=== PATIENT | male | born 1950 | race Caucasian/White ===

== ENCOUNTER → 2017-12-04 | Outpatient (CLI) | payer BC ==
[2015-03-26 12:10] VITALS: BP 109/56
[~2017-12-04] MED LIST: BETAPACE 120MG120 MG PO; GAS RELIEF20 MG/0.3 PO; VICKS PO; XARELTO20 MG PO
== END ==
LOC: RAD 10:19
DX: J43.9 Emphysema, unspecified (principal); R91.8 Other nonspecific abnormal finding of lung field

== ENCOUNTER 2018-05-04 18:09 | Emergency (ER) | payer BC, MEDICARE ==
[~2018-05-04] VITALS: Ht 175.3 cm; Wt 81.8 kg
[2018-05-04] MEDS ORDERED: GLUCOPHAGE500 MG/TAB PO (18:17)
[2018-05-04] MEDS ORDERED: METFORMIN HCL500 M2 PO (18:39)
[2018-05-04] MEDS ORDERED: FARXIGA5 MG PO (18:40)
[2018-05-04] MEDS ORDERED: SIMVASTATIN20 M1 PO (18:45)
[2018-05-04] MEDS ORDERED: VASOTEC 2.2.5 MG/TAB PO (18:47)
[2018-05-04] MEDS ORDERED: AMIODARONE200 MG PO (18:48)
[2018-05-04] MEDS ORDERED: ADULT ASPIRIN81 MG PO (18:50)
[2018-05-04 18:53] LABS: EOS # 0.4 (0.04-0.40); EOS % 3.7 % (0.0-4.0); HEMOGLOBIN 16.9 g/dL (13.5-18.0); LYMPH# 2.1 (1.50-4.00); MEAN CELL VOLUME 82 fl (78-100); MEAN CORPUSCULAR HEMOGLOBIN 27 pg (27-31); MEAN CORPUSCULAR HGB CONC 33 g/dL (33-37); MEAN PLATELET VOLUME 9.6 fl (7.4-10.4); MONO # 1.4 (0.20-0.80); NEU # 7.8 (1.40-6.50); PLATELET COUNT 302 K/mm3 (130-400); RED BLOOD COUNT 6.23 M/mm3 (4.20-5.60); RED CELL DISTRIBUTION WIDTH 14.9 % (11.5-14.5); WHITE BLOOD COUNT 11.9 K/mm3 (4.8-10.8)
[2018-05-04] MEDS ORDERED: COMBIVENT RESPI1 SPR IH (18:54)
[2018-05-04 19:05] LABS: ALBUMIN 3.9 g/dL (3.5-5.0); BUN/CREATININE RATIO 10.1 (6.0-26.0); CALCIUM 9.5 mg/dL (8.4-10.2); POTASSIUM 3.9 mmol/L (3.6-5.0); TOTAL BILIRUBIN 0.3 mg/dL (0.2-1.3); TOTAL PROTEIN 7.9 g/dL (6.3-8.2)
[2018-05-04] MEDS ORDERED: CETIRIZINE HCL10 MG PO (19:37)
[2018-05-04 20:26] LABS: PROTHROMBIN TIME 9.6 SECONDS (9.0-12.0)
[2018-05-04 20:59] VITALS: BP 148/93
== END 2018-05-04 20:59 | disposition short-term general hospital (02) ==
LOC: ED 18:09
PROVIDERS: Family Medicine
DX: I20.0 Unstable angina (principal); I42.9 Cardiomyopathy, unspecified; I48.91 Unspecified atrial fibrillation; E11.9 Type 2 diabetes mellitus without complications; E78.5 Hyperlipidemia, unspecified; J44.9 Chronic obstructive pulmonary disease, unspecified; F17.200 Nicotine dependence, unspecified, uncomplicated; Z79.84 Long term (current) use of oral hypoglycemic drugs; Z79.899 Other long term (current) drug therapy
CPT/HCPCS: J1644; J2270

== ENCOUNTER 2018-05-10 15:29 | Outpatient (RCR) | payer BC ==
[~2018-05-10 15:29] MED LIST changes: +ADULT ASPIRIN81 MG PO; +AMIODARONE200 MG PO; +CETIRIZINE HCL10 MG PO; +COMBIVENT RESPI1 SPR IH; +FARXIGA5 MG PO; +GLUCOPHAGE500 MG/TAB PO; +METFORMIN HCL500 M2 PO; +SIMVASTATIN20 M1 PO; +VASOTEC 2.2.5 MG/TAB PO
[2018-06-07] MEDS ORDERED: BRILINTA90 MG PO (09:38)
[2018-06-07] MEDS ORDERED: GLUCOTROL 5M5 MG/TAB PO (09:39)
[2018-06-07] MEDS ORDERED: NITROGLYCERIN0.4 M1 SL (09:39)
[2018-06-07] MEDS ORDERED: ASPIRIN ADULT L81 M3 PO (09:39)
[2018-06-07] MEDS ORDERED: FLOMAX0.4 MG PO (09:39)
[2018-06-07] MEDS ORDERED: FUROSEMIDE20 MG PO (09:39)
== END 2018-08-08 | disposition home or self-care (01) ==
LOC: CARDREHAB
DX: Z48.812 Encounter for surgical aftercare following surgery on the circulatory system (principal); Z95.5 Presence of coronary angioplasty implant and graft; I21.4 Non-ST elevation (NSTEMI) myocardial infarction

== ENCOUNTER 2018-06-07 09:05 | Emergency (ER) | payer BC ==
[~2018-06-07] VITALS: Wt 87.0 kg
[2018-06-07] MEDS ORDERED: BRILINTA90 MG PO (09:38)
[2018-06-07] MEDS ORDERED: FLOMAX0.4 MG PO (09:39)
[2018-06-07] MEDS ORDERED: GLUCOTROL 5M5 MG/TAB PO (09:39)
[2018-06-07] MEDS ORDERED: FUROSEMIDE20 MG PO (09:39)
[2018-06-07] MEDS ORDERED: NITROGLYCERIN0.4 M1 SL (09:39)
[2018-06-07] MEDS ORDERED: ASPIRIN ADULT L81 M3 PO (09:39)
[2018-06-07 10:07] LABS: EOS # 0.5 (0.04-0.40); EOS % 3.8 % (0.0-4.0); HEMATOCRIT 47.2 % (42.0-52.0); HEMOGLOBIN 15.3 g/dL (13.5-18.0); LYMPH# 1.6 (1.50-4.00); MEAN CELL VOLUME 82 fl (78-100); MEAN CORPUSCULAR HEMOGLOBIN 27 pg (27-31); MEAN CORPUSCULAR HGB CONC 32 g/dL (33-37); MEAN PLATELET VOLUME 9.3 fl (7.4-10.4); MONO # 1.2 (0.20-0.80); NEU # 8.6 (1.40-6.50); PLATELET COUNT 252 K/mm3 (130-400); RED BLOOD COUNT 5.73 M/mm3 (4.20-5.60); RED CELL DISTRIBUTION WIDTH 17.6 % (11.5-14.5); WHITE BLOOD COUNT 11.9 K/mm3 (4.8-10.8)
[2018-06-07 10:11] LABS: ALBUMIN 3.6 g/dL (3.5-5.0); BUN/CREATININE RATIO 9.7 (6.0-26.0); CALCIUM 8.5 mg/dL (8.4-10.2); POTASSIUM 4.4 mmol/L (3.6-5.0); TOTAL BILIRUBIN 0.4 mg/dL (0.2-1.3)
[2018-06-07 10:15] LABS: PARTIAL THROMBOPLASTIN TIME 24.4 SECONDS (21.0-32.0)
[2018-06-07 10:21] LABS: CKMB ISOENZYME 1.6 ng/mL (0.6-3.5)
[2018-06-07 10:22] LABS: TROPONIN-I < 0.03 ng/mL (0.00-0.06)
[2018-06-07 10:42] LABS: D-DIMER 0.29 mg/L FEU (0.15-0.50)
[2018-06-07 13:41] VITALS: BP 133/87
== END 2018-06-07 13:35 | disposition home or self-care (01) ==
LOC: ED 09:05
PROVIDERS: Physician Assistant
DX: R07.9 Chest pain, unspecified (principal); I25.10 Atherosclerotic heart disease of native coronary artery without angina pectoris; E11.9 Type 2 diabetes mellitus without complications; E78.5 Hyperlipidemia, unspecified; J44.9 Chronic obstructive pulmonary disease, unspecified; I42.9 Cardiomyopathy, unspecified; F17.210 Nicotine dependence, cigarettes, uncomplicated; Z95.5 Presence of coronary angioplasty implant and graft; F41.9 Anxiety disorder, unspecified; I48.91 Unspecified atrial fibrillation; Z79.84 Long term (current) use of oral hypoglycemic drugs; Z79.899 Other long term (current) drug therapy; Z79.82 Long term (current) use of aspirin

== ENCOUNTER → 2018-06-14 | Outpatient (CLI) | payer BC ==
[2018-06-07 13:41] VITALS: BP 133/87
[~2018-06-14] MED LIST changes: +ASPIRIN ADULT L81 M3 PO; +BRILINTA90 MG PO; +FLOMAX0.4 MG PO; +FUROSEMIDE20 MG PO; +GLUCOTROL 5M5 MG/TAB PO; +NITROGLYCERIN0.4 M1 SL
== END ==
LOC: CARDREHAB 08:33 → CARDLAB 16:17
DX: I25.10 Atherosclerotic heart disease of native coronary artery without angina pectoris (principal); Z82.49 Family history of ischemic heart disease and other diseases of the circulatory system; F17.210 Nicotine dependence, cigarettes, uncomplicated
CPT/HCPCS: A9500

== ENCOUNTER → 2018-06-24 | Outpatient (CLI) | payer BC ==
[2018-06-07 13:41] VITALS: BP 133/87
== END ==
LOC: VAS 15:42 → RAD 17:00
DX: I35.1 Nonrheumatic aortic (valve) insufficiency (principal)

== ENCOUNTER 2019-05-27 11:59 | Emergency (ER) | payer BC ==
[~2019-05-27] VITALS: Ht 177.8 cm; Wt 81.8 kg
[2019-05-27 12:30] LABS: EOS # 0.3 (0.04-0.40); EOS % 2.7 % (0.0-4.0); HEMATOCRIT 46.4 % (42.0-52.0); HEMOGLOBIN 15.4 g/dL (13.5-18.0); LYMPH# 1.5 (1.50-4.00); MEAN CELL VOLUME 83 fl (78-100); MEAN CORPUSCULAR HEMOGLOBIN 28 pg (27-31); MEAN CORPUSCULAR HGB CONC 33 g/dL (33-37); MEAN PLATELET VOLUME 9.6 fl (7.4-10.4); MONO # 0.9 (0.20-0.80); NEU # 7.5 (1.40-6.50); PLATELET COUNT 269 K/mm3 (130-400); RED BLOOD COUNT 5.61 M/mm3 (4.20-5.60); RED CELL DISTRIBUTION WIDTH 14.6 % (11.5-14.5); WHITE BLOOD COUNT 10.2 K/mm3 (4.8-10.8)
[2019-05-27 12:37] LABS: ALBUMIN 3.9 g/dL (3.4-4.8); POTASSIUM 4.3 mmol/L (3.5-5.1); SODIUM 131 mmol/L (136-145)
[2019-05-27 12:38] LABS: CALCIUM 8.9 mg/dL (8.3-10.5)
[2019-05-27 12:39] LABS: GLUCOSE 135 mg/dL (75-110)
[2019-05-27 12:40] LABS: CARBON DIOXIDE 18 mmol/L (23-31)
[2019-05-27 12:41] LABS: TOTAL BILIRUBIN 0.4 mg/dL (0.2-1.2)
[2019-05-27 12:44] LABS: AST-SGOT 13 U/L (5-34)
[2019-05-27 12:46] LABS: ALT/SGPT 14 U/L (0-55)
[2019-05-27 12:59] LABS: TROPONIN-I < 0.03 ng/mL (<0.030)
[2019-05-27] MEDS ORDERED: EC-NAPROXEN500 MG PO (16:41)
[2019-05-27] MEDS ORDERED: CYCLOBENZAPRINE10 M1 PO (16:42)
[2019-05-27 17:20] VITALS: BP 152/78
== END 2019-05-27 17:20 | disposition home or self-care (01) ==
LOC: ED 11:59
PROVIDERS: Nurse Practitioner Primary Care
DX: M54.12 Radiculopathy, cervical region (principal); I48.91 Unspecified atrial fibrillation; I25.2 Old myocardial infarction; E11.9 Type 2 diabetes mellitus without complications; I10 Essential (primary) hypertension; E78.5 Hyperlipidemia, unspecified; F17.210 Nicotine dependence, cigarettes, uncomplicated; Z86.73 Personal history of transient ischemic attack (TIA), and cerebral infarction without residual deficits; Z95.5 Presence of coronary angioplasty implant and graft; Z79.01 Long term (current) use of anticoagulants

== ENCOUNTER → 2019-05-29 | Outpatient (CLI) | payer BC ==
[2019-05-27 17:20] VITALS: BP 152/78
[~2019-05-29] MED LIST changes: +CYCLOBENZAPRINE10 M1 PO; +EC-NAPROXEN500 MG PO
== END ==
LOC: RAD 15:01
DX: M48.02 Spinal stenosis, cervical region (principal); M47.22 Other spondylosis with radiculopathy, cervical region

== ENCOUNTER → 2019-06-26 | Outpatient (CLI) | payer BC ==
[2019-05-27 17:20] VITALS: BP 152/78
== END ==
LOC: RAD 10:02
DX: M47.22 Other spondylosis with radiculopathy, cervical region (principal)

== ENCOUNTER 2019-07-25 09:00 | Outpatient (RCR) | payer BC ==
[~2019-07-25 09:00] MED LIST changes: +ELIQUIS5 MG PO
== END 2019-07-25 09:30 | disposition home or self-care (01) ==
LOC: PT 09:00
DX: M47.22 Other spondylosis with radiculopathy, cervical region (principal)

== ENCOUNTER → 2019-10-31 | Outpatient (CLI) | payer BC ==
[2019-07-16 09:58] VITALS: BP 123/78
== END ==
LOC: RAD 15:54
DX: I48.91 Unspecified atrial fibrillation (principal); I35.1 Nonrheumatic aortic (valve) insufficiency

== ENCOUNTER 2019-12-19 09:30 | Outpatient (RCR) | payer BC ==
[2019-07-16 09:58] VITALS: BP 123/78
== END 2020-01-05 | disposition still patient (30) ==
LOC: PT
DX: M48.02 Spinal stenosis, cervical region (principal); M50.10 Cervical disc disorder with radiculopathy, unspecified cervical region; G95.20 Unspecified cord compression; Z98.1 Arthrodesis status

== ENCOUNTER 2020-05-06 15:54 | Emergency (ER) | payer MEDICARE, OTHER ==
[~2020-05-06] VITALS: Ht 177.8 cm; Wt 81.8 kg
[2020-05-06] MEDS ORDERED: GLUCOPHAGE1000 MG PO (17:10)
[2020-05-06] MEDS ORDERED: CYCLOBENZ5 MG PO (17:41)
[2020-05-06] MEDS ORDERED: ATORVASTATIN CA40 MG PO (18:21)
[2020-05-06 18:39] VITALS: BP 148/79
== END 2020-05-06 18:38 | disposition home or self-care (01) ==
LOC: ED 15:54
DX: M54.2 Cervicalgia (principal); G89.29 Other chronic pain; E11.65 Type 2 diabetes mellitus with hyperglycemia; I95.1 Orthostatic hypotension; I48.91 Unspecified atrial fibrillation; I25.10 Atherosclerotic heart disease of native coronary artery without angina pectoris; I42.9 Cardiomyopathy, unspecified; I10 Essential (primary) hypertension; F41.9 Anxiety disorder, unspecified; M48.02 Spinal stenosis, cervical region; F17.210 Nicotine dependence, cigarettes, uncomplicated; Z79.84 Long term (current) use of oral hypoglycemic drugs; Z95.5 Presence of coronary angioplasty implant and graft

== ENCOUNTER → 2020-05-12 | Outpatient (CLI) | payer MEDICARE, OTHER ==
[2020-05-06 18:39] VITALS: BP 148/79
[~2020-05-12] MED LIST changes: +ATORVASTATIN CA40 MG PO; +CYCLOBENZ5 MG PO; +GLUCOPHAGE1000 MG PO
[2020-05-12 10:18] LABS: POTASSIUM 4.1 mmol/L (3.5-5.1)
[2020-05-12 10:19] LABS: ALBUMIN 4.3 g/dL (3.4-4.8)
[2020-05-12 10:20] LABS: CALCIUM 9.6 mg/dL (8.3-10.5)
[2020-05-12 10:21] LABS: TOTAL PROTEIN 7.8 g/dL (6.2-8.1)
[2020-05-12 10:23] LABS: TOTAL BILIRUBIN 0.8 mg/dL (0.2-1.2)
== END ==
LOC: LAB 09:57
PROVIDERS: Family Medicine
DX: E11.9 Type 2 diabetes mellitus without complications (principal); N40.1 Benign prostatic hyperplasia with lower urinary tract symptoms; I25.10 Atherosclerotic heart disease of native coronary artery without angina pectoris; M62.838 Other muscle spasm

== ENCOUNTER → 2020-11-10 | Outpatient (CLI) | payer MEDICARE, OTHER | LOC: LAB 12:24 | DX: E11.9 Type 2 diabetes mellitus without complications (principal) ==

== ENCOUNTER → 2021-05-13 | Outpatient (CLI) | payer MEDICARE, OTHER ==
[2021-05-13 12:25] LABS: URINE WBC 0 /hpf (0-3)
[2021-05-13 12:38] LABS: POTASSIUM 4.1 mmol/L (3.5-5.1)
[2021-05-13 12:39] LABS: ALBUMIN 4.1 g/dL (3.4-4.8)
[2021-05-13 12:40] LABS: CALCIUM 9.5 mg/dL (8.3-10.5)
[2021-05-13 12:41] LABS: TOTAL PROTEIN 7.4 g/dL (6.2-8.1)
[2021-05-13 12:43] LABS: TOTAL BILIRUBIN 1.1 mg/dL (0.2-1.2); URINE APPEARANCE CLEAR; URINE COLOR YELLOW
[2021-05-13 12:44] LABS: URINE BILIRUBIN NEGATIVE (NEGATIVE); URINE BLOOD TRACE (NEGATIVE); URINE KETONE NEGATIVE (NEGATIVE); URINE LEUKOCYTE ESTERASE NEGATIVE (NEGATIVE); URINE NITRATE NEGATIVE (NEGATIVE); URINE PROTEIN(semi-quant) TRACE mg/dL (NEGATIVE); URINE UROBILINOGEN NORMAL (NORMAL)
[2021-05-16 14:38] LABS: CREATININE OTHER SOURCE 18 mg/dL (())
== END ==
LOC: LAB 10:51
PROVIDERS: Family Medicine
DX: E11.9 Type 2 diabetes mellitus without complications (principal); I25.10 Atherosclerotic heart disease of native coronary artery without angina pectoris